=== PATIENT | male | born 1960 | race African-American/Black ===

== ENCOUNTER 2018-02-06 07:52 | Emergency (ER) | payer BC ==
--- NOTE | 2018-02-06 08:48 | RAD REPORT ---
EXAM DESCRIPTION: CT - CTHCSPWOC - 02/06/2018 8:34 am CLINICAL HISTORY: Trauma, head and neck injury. SMASH INJURY COMPARISON: C Spine Wo Con dated 05/12/2017; Head Brain Wo Cont dated 10/02/2016 TECHNIQUE: Axial 5 mm thick images of the head were obtained. Axial 2 mm thick images of the cervical spine were obtained with sagittal and coronal reconstruction images generated and reviewed. All CT scans are performed using dose optimization technique as appropriate and may include automated exposure control or mA/KV adjustment according to patient size. FINDINGS: CT HEAD WITHOUT CONTRAST: No acute hemorrhage, hydrocephalus or extra-axial collection is identified.No areas of brain edema or midline shift. The paranasal sinuses and mastoids are clear.The calvarium is intact. Moderate right frontal scalp he matoma. CT CERVICAL SPINE WITHOUT CONTRAST: No fracture or subluxation.Moderate multilevel cervical degenerative changes.No prevertebral soft tis sues swelling is identified. IMPRESSION: No acute intracranial or cervical spine findings. Moderate cervical spondylosis.
[2018-02-06] MEDS ORDERED: HYDROCODONE/APAP 5/325 MG TAB ONE (08:56)
[2018-02-06] MEDS ORDERED: CLINDAMYCIN HCL 150 MG CAP ONE (08:57)
--- NOTE | 2018-02-06 08:57 | EDPHYS ---
Physician Documentation [facility] Name: Lucie Brand Age: 58 yrs Sex: Male : 1960 Arrival Date: 02/06/2018 Time: 07:53 Bed 8 Private MD: Jose David Coronado C ED Physician Hany Hopkins HPI: 02/06 08:06 This 58 yrs old Black Male presents to ER via Wheelchair with complaints of Fall Injury snw - 6 Ft. 08:06 Details of fall: The patient fell from a height, from a ladder, but was slowed somewhat snw by hitting ladder rungs. Onset: The symptoms/episode began/occurred suddenly, just prior to arrival, helping a friend at her home. Associated injuries: The patient sustained injury to the head, right elbow and right bernard, abrasion. Severity of symptoms: At their worst the symptoms were moderate. The patient has not experienced similar symptoms in the past. It is unknown whether or not the patient has recently seen a physician, Sees Dr. Coronado. Ladder collapsed and pt fell about 6 ft and right forehead struck concrete. Denies LOC, vomiting, weakness. Historical: - Allergies: 08:05 Cipro; sv - PMHx: 08:05 Hypertension; Prostate Cancer; sv - Immunization history:: Adult Immunizations up to date. - Immunization history: Last tetanus immunization: - up to date. - Social history:: Smoking status: Patient/guardian denies using tobacco. - Ebola Screening: : No symptoms or risks identified at this time No symptoms or risks identified at this time. ROS: 08:05 Constitutional: Negative for fever, chills, and weight loss, Eyes: Negative for injury, snw pain, redness, and discharge, ENT: Negative for injury, pain, and discharge, Neck: Negative for injury, pain, and swelling, Cardiovascular: Negative for chest pain, palpitations, and edema, Respiratory: Negative for shortness of breath, cough, wheezing, and pleuritic chest pain, Abdomen/GI: Negative for abdominal pain, nausea, vomiting, diarrhea, and constipation, Back: Negative for injury and pain, : Negative for injury, bleeding, discharge, and swelling, MS/Extremity: Negative for injury and deformity, Skin: Negative for injury, rash, and discoloration. 08:05 Neuro: Positive for hematoma, Negative for dizziness, headache, hearing loss, loss of consciousness, seizure activity, weakness. Exam: 08:04 Eyes: Pupils equal round and reactive to light, extra-ocular motions intact. Lids and snw lashes normal. Conjunctiva and sclera are non-icteric and not injected. Cornea within normal limits. Periorbital areas with no swelling, redness, or edema. ENT: Nares patent. No nasal discharge, no septal abnormalities noted. Tympanic membranes are normal and external auditory canals are clear. Oropharynx with no redness, swelling, or masses, exudates, or evidence of obstruction, uvula midline. Mucous membranes moist. Neck: Trachea midline, no thyromegaly or masses palpated, and no cervical lymphadenopathy. Supple, full range of motion without nuchal rigidity, or vertebral point tenderness. No Meningismus. Chest/axilla: Normal chest wall appearance and motion. Nontender with no deformity. No lesions are appreciated. Cardiovascular: Regular rate and rhythm with a normal S1 and S2. No gallops, murmurs, or rubs. Normal PMI, no JVD. No pulse deficits. Respiratory: Lungs have equal breath sounds bilaterally, clear to auscultation and percussion. No rales, rhonchi or wheezes noted. No increased work of breathing, no retractions or nasal flaring. Abdomen/GI: Soft, non-tender, with normal bowel sounds. No distension or tympany. No guarding or rebound. No evidence of tenderness throughout. Back: No spinal tenderness. No costovertebral tenderness. Full range of motion. MS/ Extremity: Pulses equal, no cyanosis. Neurovascular intact. Full, normal range of motion. Neuro: Awake and alert, GCS 15, oriented to person, place, time, and situation. Cranial nerves II-XII grossly intact. Motor strength 5/5 in all extremities. Sensory grossly intact. Cerebellar exam normal. Normal gait. Psych: Awake, alert, with orientation to person, place and time. Behavior, mood, and affect are within normal limits. 08:04 Constitutional: The patient appears alert, awake. 08:04 Head/face: Noted is hematoma, that is severe, of the right side of forehead. 08:04 Skin: Appearance: normal except for affected area, injury, abrasion(s), small abrasion noted, of the right elbow and right bernard. Vital Signs: 08:03 BP 164 / 96; Pulse 65; Resp 16; Temp 98.8; Pulse Ox 97% on R/A; Weight 113.4 kg; Height hb 6 ft. 1 in. (185.42 cm); Pain 0/10; 08:55 BP 134 / 83; Pulse 66; Resp 18; Temp 98.8; Pulse Ox 99% ; Pain 0/10; sv 08:03 Body Mass Index 32.98 (113.40 kg, 185.42 cm) hb [place] Coma Score: 08:03 Eye Response: spontaneous(4). Verbal Response: oriented(5). Motor Response: obeys hb commands(6). Total: 15. 08:55 Eye Response: spontaneous(4). Verbal Response: oriented(5). Motor Response: obeys sv commands(6). Total: 15. Trauma Score (Adult): 08:03 Eye Response: spontaneous(1); Verbal Response: oriented(1); Motor Response: obeys hb commands(2); Systolic BP: > 89 mm Hg(4); Respiratory Rate: 10 to 29 per min(4); [place]a Score: 15; Trauma Score: 12 08:55 Eye Response: spontaneous(1); Verbal Response: oriented(1); Motor Response: obeys sv commands(2); Systolic BP: > 89 mm Hg(4); Respiratory Rate: 10 to 29 per min(4); Raina Score: 15; Trauma Score: 12 09:00 Eye Response: spontaneous(1); Verbal Response: oriented(1); Motor Response: obeys hb commands(2); Systolic BP: > 89 mm Hg(4); Respiratory Rate: 10 to 29 per min(4); [place] Score: 15; Trauma Score: 12 MDM: 07:57 Patient medically screened. rn 08:57 Data reviewed: vital signs, nurses notes. Data interpreted: Pulse oximetry: on room air snw is 97 %. Interpretation: normal. Counseling: I had a detailed discussion with the patient and/or guardian regarding: the historical points, exam findings, and any diagnostic results supporting the discharge/admit diagnosis, the presence of at least one elevated blood pressure reading (>120/80) during this emergency department visit, radiology results, the need for outpatient follow up, for definitive care, to return to the emergency department if symptoms worsen or persist or if there are any questions or concerns that arise at home. Special discussion: I have referred the patient to see his PCP for further evaluation of high blood pressure. Based on the patient's history, exam and DX evaluation, there is no indication for emergent intervention or inpatient [place]. It is understood by the patient/guardian that if the SXs persist or worsen they need to return immediately for re-evaluation. Based on the history and exam findings, there is no indication for further emergent testing or inpatient evaluation. I discussed with the patient/guardian the need to see the primary care provider for further evaluation of the symptoms. 02/06 08:04 Order name: CT Head C Spine; Complete Time: 08:58 snw 02/06 08:04 Order name: C-Collar; Complete Time: 08:11 snw Administered Medications: 08:55 Drug: [place] 5 mg-325 mg 1 tabs Route: PO; hb 09:35 Follow up: Response: No adverse reaction sv 08:55 Drug: Clindamycin 300 mg Route: PO; hb 09:35 Follow up: Response: No adverse reaction sv Disposition: 18:16 Co-signature as Attending Physician, Hany Hopkins MD. rn Disposition: 02/06/18 08:56 Discharged to Home. Impression: Unspecified injury of head, Essential (primary) hypertension. - Condition is Stable. - Discharge Instructions: Head Injury, Adult, Hypertension, Post-Concussion Syndrome, Managing Your High Blood Pressure. - Prescriptions for Tylenol- Codeine #3 300-30 mg Oral Tablet - take 2 tablets by ORAL route every 6 hours As needed; 20 tablet. Zofran 4 mg Oral Tablet - take 1 tablet by ORAL route every 8 hours As needed; 20 tablet. Clindamycin HCl 300 mg Oral Capsule - take 1 capsule by ORAL route every 8 hours for 10 days; 30 capsule. - Work release form, Medication Reconciliation Form, Thank You Letter, Antibiotic Education, Prescription Opioid Use form. - Follow up: Jose David Coronado MD; When: 2 - 3 days; Reason: Recheck today's complaints, Continuance of care, Re-evaluation by your physician. Follow up: Emergency Department; When: As needed; Reason: Worsening of condition. Signatures: [facility] Jinny Metzger RN RN Geeta Jensen, PUBLIC HEALTH CLINICAL NURSE SPECIALIST-C PUBLIC HEALTH CLINICAL NURSE SPECIALIST-CsnHany Jensen MD MD rn Baxter, Heather, RN RN Corrections: (The following items were deleted from the chart) 09:35 08:56 02/06/2018 08:56 Discharged to Home. Impression: Unspecified injury of head; sv Essential (primary) hypertension. Condition is Stable. Forms are Medication Reconciliation Form, Thank You Letter, Antibiotic Education, Prescription Opioid Use. Follow up: A Coronado; When: 2 - 3 days; Reason: Recheck today's complaints, Continuance of care, Re-evaluation by your physician. Follow up: Emergency Department; When: As needed; Reason: Worsening of condition. snw
--- NOTE | 2018-02-06 08:57 | ER ---
Nurse's Notes [facility] Name: Lucie Brand Age: 58 yrs Sex: Male : 1960 Arrival Date: 02/06/2018 Time: 07:53 Bed 8 Private MD: Jose David Coronado C Diagnosis: Unspecified injury of head;Essential (primary) hypertension Presentation: 02/06 08:02 Presenting complaint: Patient states: he was approx 6 ft up on a ladder and the ladder sv fell. Abrasion noted to right side of nose, above eyebrow, elbow, and right anterior lower leg. Hematoma noted to RLE and above right eyebrow. Transition of care: patient was not received from another setting of care. Onset of symptoms was February 06, 2018. Initial Sepsis Screen: Does the patient meet any 2 criteria? No. Patient's initial sepsis screen is negative. Does the patient have a suspected source of infection? No. Patient's initial sepsis screen is negative. Care prior to arrival: None. 08:02 Method Of Arrival: Wheelchair sv 08:02 Acuity: YAMILETH 3 sv 08:05 Risk Assessment: Do you want to hurt yourself or someone else? Patient reports no hb desire to harm self or others. 08:06 Mechanism of Injury: Fall approximately 6 feet. Trauma event details: Injury occurred: sv at home. Injury occurred: February 06, 2018. Trauma Activation: Not Applicable Physician: ED Physician; Name: ; Notified At: ; Arrived At: Physician: General Surgeon; Name: ; Notified At: ; Arrived At: Physician: Radiology; Name: ; Notified At: ; Arrived At: Physician: Respiratory; Name: ; Notified At: ; Arrived At: Physician: Lab; Name: ; Notified At: ; Arrived At: Historical: - Allergies: 08:05 Cipro; sv - PMHx: 08:05 Hypertension; Prostate Cancer; sv - Immunization history:: Adult Immunizations up to date. - Immunization history: Last tetanus immunization: - up to date. - Social history:: Smoking status: Patient/guardian denies using tobacco. - Ebola Screening: : No symptoms or risks identified at this time No symptoms or risks identified at this time. Screenin:03 Abuse screen: Denies threats or abuse. Denies injuries from another. Tuberculosis hb screening: No symptoms or risk factors identified. 08:08 Nutritional screening: No deficits noted. Fall Risk None identified. sv Primary Survey: 08:00 A: Airway: patent, No supplemental oxygen in use on arrival. hb 08:00 Breathing/Chest: Respiratory pattern: regular, Respiratory effort: spontaneous, hb unlabored, Breath sounds: clear, bilaterally. Chest inspection: symmetrical rise and fall of the chest. Circulation: Pulses: palpable . Skin color: pink, Skin temperature: warm, dry. Disability Alert. 09:00 Reassessment Airway Airway Patent Oxygen No O2 Breathing/Chest Respiratory pattern hb Regular Respiratory effort Spontaneous Unlabored Chest inspection Symmetrical Circulation Color [place] Temperature Warm Dry Disability Alert. Secondary Survey: 08:00 HEENT: Face Other contusion to right side of forehead. Gastrointestinal: No deficits hb noted. : No deficits noted. No signs and/or symptoms were reported regarding the genitourinary system. Musculoskeletal: No deficits noted. Injury Description: contusion to right forehead, abrasion to right side of nose, right elbow and right bernard. Assessment: 08:04 General: Appears in no apparent distress. Behavior is calm, cooperative. Pain: Denies hb pain. Neuro: Level of Consciousness is awake, alert, obeys commands, Oriented to person, place, time, situation, Pupils are PERRLA. EENT: No signs and/or symptoms were reported regarding the EENT system. Cardiovascular: Heart tones S1 S2 present Capillary refill < 3 seconds Patient's skin is warm and dry. Respiratory: Airway is patent Trachea midline Respiratory effort is even, unlabored, Respiratory pattern is regular, symmetrical, Breath sounds are clear bilaterally. GI: No signs and/or symptoms were reported involving the gastrointestinal system. : No signs and/or symptoms were reported regarding the genitourinary system. Derm: Skin is intact, is healthy with good turgor. Musculoskeletal: No signs and/or symptoms reported regarding the musculoskeletal system. Injury Description: contusion to right side of forehead, abrasions to right side of nose, right elbow and right bernard. 09:00 Reassessment: Patient appears in no apparent distress at this time. No changes from hb previously documented assessment. Patient and/or family updated on plan of care and expected duration. Pain level reassessed. Patient is alert, oriented x 3, equal unlabored respirations, skin warm/dry/pink. 09:20 Reassessment: Patient appears in no apparent distress at this time. No changes from sv previously documented assessment. Patient and/or family updated on plan of care and expected duration. Pain level reassessed. Patient is alert, oriented x 3, equal unlabored respirations, skin warm/dry/pink. Vital Signs: 08:03 BP 164 / 96; Pulse 65; Resp 16; Temp 98.8; Pulse Ox 97% on R/A; Weight 113.4 kg; Height hb 6 ft. 1 in. (185.42 cm); Pain 0/10; 08:55 BP 134 / 83; Pulse 66; Resp 18; Temp 98.8; Pulse Ox 99% ; Pain 0/10; sv 08:03 Body Mass Index 32.98 (113.40 kg, 185.42 cm) hb [place] Coma Score: 08:03 Eye Response: spontaneous(4). Verbal Response: oriented(5). Motor Response: obeys hb commands(6). Total: 15. 08:55 Eye Response: spontaneous(4). Verbal Response: oriented(5). Motor Response: obeys sv commands(6). Total: 15. Trauma Score (Adult): 08:03 Eye Response: spontaneous(1); Verbal Response: oriented(1); Motor Response: obeys hb commands(2); Systolic BP: > 89 mm Hg(4); Respiratory Rate: 10 to 29 per min(4); [place] Score: 15; Trauma Score: 12 08:55 Eye Response: spontaneous(1); Verbal Response: oriented(1); Motor Response: obeys sv commands(2); Systolic BP: > 89 mm Hg(4); Respiratory Rate: 10 to 29 per min(4); [place] Score: 15; Trauma Score: 12 09:00 Eye Response: spontaneous(1); Verbal Response: oriented(1); Motor Response: obeys hb commands(2); Systolic BP: > 89 mm Hg(4); Respiratory Rate: 10 to 29 per min(4); [place] Score: 15; Trauma Score: 12 ED Course: 07:53 Patient arrived in ED. as 07:54 Jose David Coronado MD is Private Physician. as 07:57 Hany Hopkins MD is Attending Physician. rn 08:02 Rigid cervical collar applied and checked by physician. sv 08:03 Geeta Villanueva FNP-C is [facility]. snw 08:05 Triage completed. sv 08:05 Arm band placed on right wrist. sv 08:06 Patient has correct armband on for positive identification. Bed in low position. Call sv light in reach. Door closed. Ice pack to injury. Head of bed elevated. 08:07 Patient maintains SpO2 saturation greater than 95% on room air. sv 08:10 Thermoregulation: warm blanket given to patient. hb 08:32 CT completed. Patient tolerated procedure well. Patient moved to CT via stretcher. Patient moved back from CT. 08:33 CT Head C Spine In Process Unspecified. EDMS 08:43 Jose David Coronado MD is Referral Physician. snw 08:48 Jacinta Eastman RN is Primary Nurse. hb 09:20 Wound care: to abrasion, located on right elbow, right bernard and right side of nose and sv right side of forehead was cleaned with with NS and gauze, dressed with Neosporin, Kerlix, cling, band aid, non-adherent gauze. 09:33 No provider procedures requiring assistance completed. Patient did not have IV access sv during this emergency room visit. Administered Medications: 08:55 Drug: [place] 5 mg-325 mg 1 tabs Route: PO; hb 09:35 Follow up: Response: No adverse reaction sv 08:55 Drug: Clindamycin 300 mg Route: PO; hb 09:35 Follow up: Response: No adverse reaction sv Intake: 09:00 PO: 100ml; Total: 100ml. hb Output: 09:00 Urine: 0ml; Total: 0ml. hb Outcome: 08:56 Discharge ordered by . snw 09:33 Discharged to home ambulatory. sv 09:33 Condition: stable 09:33 Discharge instructions given to patient, Instructed on discharge instructions, follow up and referral plans. no drinking with medication, no driving heavy equipment, medication usage, head injury precautions. Pt stated that his daughter who works for Dr Coronado would be checking up on him. Demonstrated understanding of instructions, follow-up care, medications, Prescriptions given X 3. 09:34 Patient's length of stay was not longer than 2 hours. sv 09:35 Patient left the ED. sv Signatures: Dispatcher [facility] Jinny Parker RN RN sv Geeta Villanueva, RISK COMPLIANCE MANAGER-C RISK COMPLIANCE MANAGER-Csnw Maxine Sanders Amelia as Nieto, Roman, MD MD rn Jacinta Eastman RN RN hb
== END 2018-02-06 09:35 | disposition home or self-care (01) ==
LOC: ER 07:52
DX: S09.90XA Unspecified injury of head, initial encounter (principal); I10 Essential (primary) hypertension; W11.XXXA Fall on and from ladder, initial encounter; Y93.9 Activity, unspecified; Y92.9 Unspecified place or not applicable; Z88.1 Allergy status to other antibiotic agents; Z85.46 Personal history of malignant neoplasm of prostate
CPT/HCPCS: 70450; 72125; 99285

== ENCOUNTER 2023-06-15 03:23 | Emergency (ER) | payer BC ==
--- OUTSIDE RECORDS SUMMARY | 2023-06-15 03:25 | XMS REPORT | Clinical Summary ---
:1960 Author Organization [facility] MD [facility] Address [address] [place] [address] Care Team Providers Name Role Phone Harry Kessler MD Primary Care Provider Allergies Active Allergy Reactions Criticality Noted Date Comments Ciprofloxacin Rash Low 11/19/2016 Medications Medication Sig Dispensed Refills Start Date End Date Status amLODIPine (NORVASC) 5 0 11/13/2016 Active mg tablet tadalafil (CIALIS) 10 Take 1 tablet (10 20 tablet 4 10/18/2021 Active mg tabletIndications: mg) by mouth Adenocarcinoma of daily as needed prostate for erectile dysfunction. Active Problems Problem Noted Date Diagnosed Date Adenocarcinoma of prostate 01/02/2017 Encounters Date Type Department Care Team Description 10/17/2022 Telemedicine MD [place] in Harry Dougherty, [place] arcinoma of 9:00 AM [facility] - Radiation prostate Oncology [address] [place] [address] after 06/15/2022 Medical History Medical History Date Comments Hypertension Asbestosis Prostate cancer 11/19/2016 Peyronie's disease Social History Tobacco Use Types Packs/Day Years Used Date Smoking Tobacco: Never Smokeless Tobacco: Never Alcohol Use Standard Drinks/Week Comments No 0 (1 standard drink = 0.6 oz pure alcoho l) Sex and Gender Information Value Date Recorded Sex Assigned at Not on file Gender Identity Not on file Sexual Orientation Not on file Job Start Date Occupation Industry Not on file Not on file Not on file Obstetrics History Last Filed Vital Signs Not on file Plan of Treatment Date Type Department Care Team Description 10/14/2023 11:00 Lab MD [facility] in [facility] Randee Kessler, AM TELETYPEWRITER OPERATOR [facility] [address] [place], [place] [address] [address] [place] [address] 10/16/2023 2:00 Telemedicine MD [facility] in Linda Gary, PA PM TELETYPEWRITER OPERATOR [facility] - Radiation [address] [place] [address] [address] [facility] [phone] (W ork) [address] [place] [address] Health Maintenance Due Date Last Done Comments COVID-19 Vaccination (#1) 1960 Results Not on fileafter 06/15/2022 Insurance Payer Benefit Plan Subscriber ID Effective Dates Phone Address Type / Group [employer] PPO POS [id number] 2016-Prese [phone] [address] [place] [address] [id number] [place] [address] Care Teams Information Technology Administrator Relationship Specialty Start Date End Date Harry Kessler MD PCP - General Radiation Oncology 09/17/[address] [place] [address]
--- OUTSIDE RECORDS SUMMARY | 2023-06-15 03:26 | XMS REPORT | Continuity of Care Document ---
:1960 Author Organization [facility] t Address [address] [place] [address] [place] [id number] Care Team Providers Name Role Phone [phone] Primary Care Physician Unavailable SYSTEM, PROVIDER NOT IN Attending Clinician Unavailable Clau Piper MD Attending Clinician CLAU PIPER Attending Clinician Unavailable Payers Payer Name Policy Type Policy Number Effective Date Expiration Date S ource Problems Condition Condition Condition Status Onset Resolution Last Treating Co mments Source Name Details Category Date Date Treatment Clinician Date Adenocarci Adenocarci Disease Active U nivers noma of noma of 5-25 ity of prostate prostate 00:00: [place] 00 MD [facility] Allergies, Adverse Reactions, Alerts Allergy Allergy Status Severity Reaction(s) Onset Inactive Treating Comm ents Source Name Type Date Date Clinician CIPROFLO DRUG Active Low Rash MD XACIN INGREDI 11-19 Anderso 00:00: n 00 CIPROFLO DRUG Active Low Rash MD XACIN INGREDI 11-19 Anderso 00:00: n 00 CIPROFLO DRUG Active Low Rash MD XACIN INGREDI 11-19 Anderso 00:00: n 00 CIPROFLO DRUG Active Low Rash MD XACIN INGREDI 11-19 Anderso 00:00: n 00 Ciproflo Propensi Active Rash Univer s xacin ty to 4-11 ity of adverse 00:00: [place] reaction 00 MD sridhar auguste [facility] Social History Social Habit Start Date Stop Date Quantity Comments Source Sexual orientation [facility] [place] MD Khoa sargent [facility] Alcohol intake 2016-12-27 2016-12-27 Current University of 00:00:00 00:00:00 non-drinker of [place] alcohol [facility] (finding) Tobacco use and 2016-11-19 2016-11-19 Smokeless Universit y of exposure 00:00:00 00:00:00 tobacco non-user [facility] Sex Assigned At [birth year] Universit y of 00:00:00 00:00:00 [place] MD Khoa sargent [facility] Smoking Status Start Date Stop Date Source Never smoked tobacco [facility] Medications Ordered Filled Start Stop Current Ordering Indication Dosage Frequency Signature Comments Components Source Medication Medication Date Date Medication? Clinician (SIG) Name Name tadalafil Yes Adenocarcin 10mg Take 1 Univers (CIALIS) 10 3-10 yaron of tablet (10 ity of mg tablet [place] daily as Anderso needed for n erectile Cancer dysfunctio Center n. amLODIPine Yes Univers (NORVASC) 5 4-05 ity of mg tablet 00:00: [place] 00 MD Nickie auguste [facility] Procedures This patient has no known procedures. Plan of Care Planned Activity Planned Date Details Comments Source Future Scheduled 2022-10-22 COVID-19 Vaccination Uni [facility] Test 07:57:13 (#1) [code = COVID-19 Cancer Vaccination (#1)] Center Encounters Start End Encounter Admission Attending Care Care Encounter Source Date/Time Date/Time Type Type Clinicians Facility Department ID 2022-10-16 Outpatient [facility], [facility] [id number] 14:17:51 PROVIDER Pepe auguste 2021-10-17 Outpatient SYSTEM, [facility] [id number] 12:17:42 PROVIDER Pepe auguste 2021-04-11 Outpatient SYSTEM, [facility] [id number] 10:51:16 PROVIDER Pepe auguste 2022-10-17 2022-10-17 [facility] [place], [id number] [facility] 09:00:00 09:04:07 enzo Mcdonald [id number] ity of [id number] [facility] 2022-10-17 2022-10-17 Outpatient MAYA PIPER MDA MDA [id number] 08:34:42 09:04:07 CLAU auguste 2021-10-18 2021-10-18 Outpatient MAYA PIPER MDA MDA [id number] 11:17:11 12:05:32 CLAU auguste 2021-04-12 2021-04-12 Outpatient MAYA PIPER MDA MDA [id number] 09:02:01 09:34:23 CLAU auguste Results This patient has no known results.
--- NOTE | 2023-06-15 03:50 | ER ---
Nurse's Notes [facility] Name: Lucie Brand Age: 63 yrs Sex: Male : 1960 Arrival Date: 06/15/2023 Time: 03:23 Bed IW1 Private MD: Diagnosis: Acute reaction to medication, acute tongue discoloration secondary to medication effect Presentation: 06/15 03:36 Chief complaint: Patient states: went to [facility] for dinner and about 30 after lg3 eating my body stared feeling funny. i stated having pressure in my belly, tightness in my chest and throat and black spots/streaks on my tongue. i took pepto and drank a sprite. denies N/V/D. Coronavirus screen: Client denies travel out of the [place] in the last 14 days. At this time, the client does not indicate any symptoms associated with coronavirus-19. Ebola Screen: No symptoms or risks identified at this time. Initial Sepsis Screen: Does the patient meet any 2 criteria? No. Patient's initial sepsis screen is negative. Does the patient have a suspected source of infection? No. Patient's initial sepsis screen is negative. Risk Assessment: Do you want to hurt yourself or someone else? Patient reports no desire to harm self or others. Onset of symptoms was June 14, 2023. 03:36 Method Of Arrival: Ambulatory lg3 03:36 Acuity: YAMILETH 4 lg3 Triage Assessment: 03:42 General: Appears in no apparent distress. comfortable, Behavior is calm, cooperative. lg3 Pain: Complains of pain in abdomen Pain currently is 3 out of 10 on a pain scale. EENT: black coloring to tongue . Neuro: No deficits noted. Blackman Agitation-Sedation Scale (RASS): 0 - Alert and Calm Level of Consciousness is awake, alert, obeys commands, Oriented to person, place, time, situation. Cardiovascular: No deficits noted. Denies chest pain, shortness of breath, Capillary refill < 3 seconds Clubbing of nail beds is absent JVD is absent Patient's skin is warm and dry. Respiratory: No deficits noted. Airway is patent Respiratory effort is even, unlabored, Respiratory pattern is regular, symmetrical. GI: No deficits noted. Abdomen is round non-distended, Abd is soft and non tender X 4 quads. : No deficits noted. No signs and/or symptoms were reported regarding the genitourinary system. Derm: No deficits noted. No signs and/or symptoms reported regarding the dermatologic system. Skin is intact, is healthy with good turgor, Skin is dry, Skin is normal, Skin temperature is warm. Musculoskeletal: No deficits noted. No signs and/or symptoms reported regarding the musculoskeletal system. Circulation, motion, and sensation intact. Range of motion: intact in all extremities. Historical: - Allergies: 03:42 Cipro; lg3 - PMHx: 03:42 Hypertension; Prostate Cancer; lg3 - Immunization history:: Adult Immunizations up to date. - Social history:: Smoking status: Patient denies any tobacco usage or history of. Patient/guardian denies using alcohol, street drugs. - Family history:: not pertinent. Screenin:55 [facility] ED Fall Risk Assessment (Adult) History of falling in the last 3 months, lg3 including since admission No falls in past 3 months (0 pts). Abuse screen: Denies threats or abuse. Denies injuries from another. Nutritional screening: No deficits noted. Tuberculosis screening: No symptoms or risk factors identified. Assessment: 03:55 General: see triage assessment. GI: No deficits noted. Bowel sounds present X 4 quads. lg3 Abd is soft and non tender X 4 quads. Vital Signs: 03:36 BP 122 / 85; Pulse 78; Resp 17 S; Temp 98.2(O); Pulse Ox 98% on R/A; Weight 113.4 kg lg3 (R); Height 6 ft. 1 in. (R); 03:36 Body Mass Index 32.98 (113.40 kg, 185.42 cm) lg3 ED Course: 03:25 Patient arrived in ED. jj6 03:29 Thom Fatima MD is Attending Physician. sp4 03:42 Triage completed. lg3 03:42 Arm band placed on right wrist. lg3 03:55 Patient has correct armband on for positive identification. lg3 03:55 No provider procedures requiring assistance completed. Patient did not have IV access lg3 during this emergency room visit. Administered Medications: No medications were administered Medication: 03:56 VIS not applicable for this client. lg3 Outcome: 03:50 Discharge ordered by . sp4 03:55 Discharged to home ambulatory, lg3 03:55 Condition: stable 03:55 Discharge instructions given to patient, Instructed on discharge instructions, follow up and referral plans. medication usage, Demonstrated understanding of instructions, follow-up care, medications, Prescriptions given X 1, 03:56 Patient left the ED. lg3 Signatures: Corinna Robles RN RN lg3 Margot Kim jj6 Thom Fatima MD MD sp4
--- NOTE | 2023-06-15 03:50 | EDPHYS ---
Physician Documentation [facility] Name: Lucie Brand Age: 63 yrs Sex: Male : 1960 Arrival Date: 06/15/2023 Time: 03:23 Bed IW1 Private MD: ED Physician Thom Fatima HPI: 06/15 03:29 This 63 yrs old Black Male presents to ER via Unassigned with complaints of Abdominal sp4 Pain, Nausea/Vomiting. 03:46 63-year-old male presents with acute tongue discoloration after taking Pepto-Bismol. sp4 Patient consumed Pepto-Bismol yesterday and today and developed blackish discoloration of the tongue. . Historical: - Allergies: 03:42 Cipro; lg3 - PMHx: 03:42 Hypertension; Prostate Cancer; lg3 - Immunization history:: Adult Immunizations up to date. - Social history:: Smoking status: Patient denies any tobacco usage or history of. Patient/guardian denies using alcohol, street drugs. - Family history:: not pertinent. ROS: 03:46 Constitutional: Negative for fever, chills, and weight loss, positive for blackness of sp4 the tongue 03:46 All other systems are negative, Exam: 03:46 Constitutional: This is a well developed, well nourished patient who is awake, alert, sp4 and in no acute distress. Head/Face: Normocephalic, atraumatic. Eyes: Pupils equal round and reactive to light, extra-ocular motions intact. Lids and lashes normal. Conjunctiva and sclera are not injected. Cornea within normal limits. Periorbital areas with no swelling, redness, or edema. ENT: Nares patent. No nasal discharge, no septal abnormalities noted. Tympanic membranes are normal and external auditory canals are clear. Oropharynx with no redness, swelling, or masses, exudates, or evidence of obstruction, uvula midline. Mucous membranes moist. Positive discoloration of the tongue upper surface secondary to Pepto-Bismol consumption. No signs of necrosis or any other problem. Neck: Trachea midline, no thyromegaly or masses palpated, and no cervical lymphadenopathy. Supple, full range of motion without nuchal rigidity, or vertebral point tenderness. Chest/axilla: Normal chest wall appearance and motion. Nontender with no deformity. No lesions are appreciated. Cardiovascular: Regular rate and rhythm with a normal S1 and S2. No gallops, murmurs, or rubs. Normal PMI, no JVD. No pulse deficits. Respiratory: Lungs have equal breath sounds bilaterally, clear to auscultation and percussion. No rales, rhonchi or wheezes noted. No increased work of breathing, no retractions or nasal flaring. Abdomen/GI: Soft, non-tender, with normal bowel sounds. No distension or tympany. No guarding or rebound. No evidence of tenderness throughout. Back: No spinal tenderness. No costovertebral tenderness. Skin: Warm, dry with normal turgor. Normal color with no rashes, no lesions, and no evidence of cellulitis. MS/ Extremity: Pulses equal, no cyanosis. Neurovascular intact. Full, normal range of motion. Neuro: Awake and alert, GCS 15, oriented to person, place, time, and situation. Cranial nerves II-XII grossly intact. Motor strength 5/5 in all extremities. Sensory grossly intact. Psych: Awake, alert, with orientation to person, place and time. Behavior, mood, and affect are within normal limits Vital Signs: 03:36 BP 122 / 85; Pulse 78; Resp 17 S; Temp 98.2(O); Pulse Ox 98% on R/A; Weight 113.4 kg lg3 (R); Height 6 ft. 1 in. (R); 03:36 Body Mass Index 32.98 (113.40 kg, 185.42 cm) lg3 MDM: 03:29 Patient medically screened. sp4 03:46 Differential diagnosis: gastritis, viral gastroenteritis, gastroenteritis. Data sp4 reviewed: vital signs, nurses notes. ED course: Patient also desires prescription of heartburn. Administered Medications: No medications were administered Disposition Summary: 06/15/23 03:50 Discharge Ordered Notes: Location: Home sp4 Problem: new sp4 Symptoms: are unchanged sp4 Condition: Stable sp4 Diagnosis - Acute reaction to medication, acute tongue discoloration secondary to medication sp4 effect Followup: sp4 - With: Private Physician - When: 7 - 10 days - Reason: Recheck today's complaints Discharge Instructions: - Discharge Summary Sheet sp4 - Gastroesophageal Reflux Disease, Adult, [id number] sp4 Forms: - Patient Portal Instructions sp4 Prescriptions: - omeprazole 20 mg Oral tablet, delayed release (enteric coated) - take 1 tablet ORAL route 2 times per day for 10 days; 60 tablet; Refills: 0, sp4 Product Selection Permitted Signatures: Dispatcher [employer] Corinna Quan RN RN lg3 Thom Fatima MD MD sp4 Corrections: (The following items were deleted from the chart) 03:48 03:29 IV Saline Lock ordered. sp4 lg3 03:48 03:29 Labs collected and sent ordered. sp4 lg3
[2023-06-15 04:55] VITALS: BP 122/85; TEMP 98.2; O2SAT 98
== END 2023-06-15 03:56 | disposition home or self-care (01) ==
LOC: ER 03:23
DX: K14.8 Other diseases of tongue (principal); T50.995A Adverse effect of other drugs, medicaments and biological substances, initial encounter; R11.2 Nausea with vomiting, unspecified; Z88.1 Allergy status to other antibiotic agents
CPT/HCPCS: 99283

== ENCOUNTER 2023-11-06 23:24 | Emergency (ER) | payer BC ==
--- OUTSIDE RECORDS SUMMARY | 2023-11-06 23:28 | XMS REPORT | Clinical Summary ---
Author Name Unknown Organization [facility] Address [address] [place] [address] Care Team Providers Care Assistant Associate Professor Name Role Phone Harry Kessler MD Primary Care Provider [phone] Allergies Active Allergy Reactions Criticality Noted Date Comments Ciprofloxacin Rash Low 11/19/2016 Medications Medication Sig Dispensed Refills Start Date End Date Status amLODIPine (NORVASC) 5 mg tablet 0 11/13/2016 Active tadalafil (CIALIS) 10 mg tabletIndications :Adenocarcinoma of prostate Take 1 tablet (10 mg) by mouth daily as needed for erectile dysfunction. 20 tablet 6 10/16/2023 Active tadalafil (CIALIS) 10 mg tabletIndications :Adenocarcinoma of prostate Take 1 tablet (10 mg) by mouth daily as needed for erectile dysfunction. 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 Telemedicine MD [facility] [place] - Radiation Oncology [address] [place], [place] [id number] Kaur Nam PA Crabtrey, Patricia, APRN Adenocarcinoma of prostate (Primary Dx) after 11/06/2022 Medical History Medical History Date Comments Hypertension Asbestosis Prostate cancer 11/19/2016 Peyronie's disease Social History Tobacco Use Types Packs/Day Years Used Date Smoking Tobacco: Never Smokeless Tobacco: Never Alcohol Use Standard Drinks/Week Comments No 0 (1 standard drink = 0.6 oz pur e alcohol) Sex and Gender Information Value Date Recorded Sex Assigned at Not on file Gender Identity Not on file Sexual Orientation Not on file Job Start Date Occupation Industry Not on file Not on file Not on file Obstetrics History Plan of Treatment Upcoming Encounters Date Type Department Care Team Description 10/21/2024 1:00 PM CDT Telemedicine MD [facility] in [place] - Radiation Oncology [address] [facility] [address] [place] [address] Kaylynn Dent, [employer] MANAGER [address] [place] [address] Health Maintenance Due Date Last Done Comments COVID-19 Vaccine (#1) 1960 Influenza Vaccine 04/11/2023 Care Teams Assistant Associate Professor Relationship Specialty Start Date End Date Harry Kessler MD [address] [place] [address] PCP - General Radiation Oncology 09/17/17
[2023-11-07 02:39] LABS: Absolute Eosinophils 0.6 K/uL (0-0.5); Absolute Lymphocytes (CBC) 1.3 K/uL (0.7-4.9); Absolute Monocytes 0.7 K/uL (0.1-1.3); Absolute Neutrophil 3.2 K/uL (1.8-8.0); Basophils % 0.4 % (0-1.3); Eosinophils % 10.5 % (0-4.4); Hematocrit 40.4 % (39.6-49.0); Hemoglobin 13.1 g/dL (13.6-17.9); Lymphocytes % 22.2 % (15.3-44.8); MCH 28.7 pg (27.0-35.0); MCHC 32.3 g/dL (32.0-36.0); MCV 88.8 fL (80-100); MPV 8.3 fL (7.6-11.3); Monocytes % 12.1 % (3.3-12.3); Neutrophils % 54.8 % (41.7-73.7); Platelets 176 thou/uL (152-406); RBC Red Blood Cell Count 4.55 M/uL (4.33-5.43); Red Cell Distribution Width 14.4 % (12.1-15.2)
[2023-11-07 02:47] LABS: PT Prothrombin Time 11.9 SECONDS (9.5-12.5); Protime INR 1.08
[2023-11-07 03:12] LABS: Albumin 3.6 g/dL (3.4-5.0); Albumin/Globulin Ratio 0.9 (1.1-1.8); Anion Gap 7.3 mEq/L (5.0-15.0); Bilirubin Direct 0.1 mg/dL (0-0.2); Bilirubin Indirect, Calculated 0.2 mg/dL (0.2-0.8); Bilirubin Total 0.3 mg/dL (0.2-1.0); Globulin 3.8 g/dL (2.3-3.5); Potassium 4.3 mEq/L (3.5-5.1); Protein, Total 7.4 g/dL (6.4-8.2); Troponin High Sensitivity 6.8 pg/mL (<58.9)
--- NOTE | 2023-11-07 05:09 | ER ---
Nurse's Notes [facility] Name: Lucie Brand Age: 63 yrs Sex: Male : 1960 Arrival Date: 11/06/2023 Time: 23:24 Bed 13 Private MD: Diagnosis: Paresthesia of skin;Acute anxiety Presentation: 11/05 23:32 Chief complaint: Patient states: WAS SLEEPING IN HIS CHAIR AND WAS AWAKEN BY HIS HEART jj7 BEATING FAST. HE FELT DIZZY AND LIKE HE WAS ABOUT TO PASS OUT. FELT NUMBNESS IN ALL HIS EXTREMITIES. Coronavirus screen: At this time, the client does not indicate any symptoms associated with coronavirus-19. Ebola Screen: No symptoms or risks identified at this time. Initial Sepsis Screen: Does the patient meet any 2 criteria? No. Patient's initial sepsis screen is negative. Does the patient have a suspected source of infection? No. Patient's initial sepsis screen is negative. Risk Assessment: Do you want to hurt yourself or someone else? Patient reports no desire to harm self or others. Onset of symptoms was November 06, 2023. 23:32 Method Of Arrival: Ambulatory [facility] 23:32 Acuity: YAMILETH 3 jj7 Triage Assessment: 23:37 General: Appears in no apparent distress. comfortable, Behavior is calm, cooperative, jj7 appropriate for age. Pain: Denies pain. Cardiovascular: No deficits noted. Historical: - Allergies: 23:37 Cipro; jj7 - PMHx: 23:37 Hypertension; Prostate Cancer; jj7 - PSHx: 23:37 RIGHT KNEE (Prostate Cancer); jj7 - Immunization history:: Client reports receiving the 2nd dose of the Covid vaccine, Flu vaccine is not up to date. - Social history:: Smoking status: Patient denies any tobacco usage or history of. Patient/guardian denies using alcohol, street drugs, IV drugs. - Family history:: not pertinent. Screenin:39 [facility] ED Fall Risk Assessment (Adult) History of falling in the last 3 months, jj7 including since admission No falls in past 3 months (0 pts) Confusion or Disorientation No (0 pts) Intoxicated or Sedated Yes (3 pts) Impaired Gait No (0 pts) Mobility Assist Device Used No (0 pt) Altered Elimination No (0 pt) Score/Fall Risk Level 0 - 2 = Low Risk Oriented to surroundings, Maintained a safe environment, Educated pt \T\ family on fall prevention, incl call for assistance when getting out of bed. Abuse screen: Denies threats or abuse. Nutritional screening: No deficits noted. Tuberculosis screening: No symptoms or risk factors identified. Assessment: 11/06 02:02 General: Appears in no apparent distress. comfortable, well groomed, well developed, pf1 Behavior is calm, cooperative, appropriate for age, quiet. 02:02 Pain: Denies pain. Neuro: No deficits noted. Level of Consciousness is awake, alert, pf1 obeys commands, Oriented to person, place, time, situation, Reports dizziness, numbness in patient C/O numbness to bilateral upper and lower extremities. since onset 2300 tonight. Cardiovascular: Reports palpitations, Capillary refill < 3 seconds Patient's skin is warm and dry. Respiratory: No deficits noted. Airway is patent Respiratory effort is even, unlabored, Respiratory pattern is regular, symmetrical. GI: No deficits noted. No signs and/or symptoms were reported involving the gastrointestinal system. : No deficits noted. No signs and/or symptoms were reported regarding the genitourinary system. EENT: No deficits noted. No signs and/or symptoms were reported regarding the EENT system. Derm: No deficits noted. No signs and/or symptoms reported regarding the dermatologic system. Musculoskeletal: Reports numbness in right hand, left hand, right arm, left arm, right leg and left leg since 2300 tonight. Patient stated symptoms have all resolved since arriving to ER and drank a bottle of water.. Vital Signs: 11/05 23:32 BP 147 / 86; Pulse 83; Resp 20; Temp 98.3; Pulse Ox 98% ; Weight 113.4 kg; Height 6 ft. jj7 1 in. ; Pain 0/10; 11/06 02:30 BP 137 / 98; Pulse 79; Resp 21; Pulse Ox 98% ; jj7 03:30 BP 127 / 80; Pulse 63; Resp 17; Pulse Ox 96% ; jj7 04:30 BP 134 / 83; Pulse 64; Resp 17; Pulse Ox 96% ; jj7 05:14 BP 129 / 80; Pulse 61; Resp 17; Pulse Ox 97% ; Pain 0/10; jj7 11/05 23:32 Body Mass Index 32.98 (113.40 kg, 185.42 cm) jj7 11/05 23:32 Pain Scale: Adult jj7 05:14 Pain Scale: Adult jj7 Crump Coma Score: 05:03 Eye Response: spontaneous(4). Motor Response: obeys commands(6). Verbal Response: sp4 oriented(5). Total: 15. NIH Stroke Scale Scores: 05:03 NIHSS Score: 0 sp4 ED Course: 11/05 23:27 Patient arrived in ED. jj6 23:37 Triage completed. jj7 23:37 Arm band placed on left wrist. jj7 23:58 Thom Fatima MD is Attending Physician. sp4 11/06 00:18 XRAY Chest (1 view) In Process Unspecified. EDMS 02:26 Inserted saline lock: 20 gauge in right antecubital area, using aseptic technique. rv1 Blood collected. 02:27 Basic Metabolic Panel Sent. rv1 02:27 CBC with Diff Sent. rv1 02:27 LFT's Sent. rv1 02:27 Magnesium Sent. rv1 02:27 NT PRO-BNP Sent. rv1 02:27 PT-INR Sent. rv1 02:27 Troponin HS Sent. rv1 02:30 Patient has correct armband on for positive identification. Bed in low position. Call jj7 light in reach. Side rails up X 1. Adult w/ patient. Provided Education on: USE OF CALL DURAN. Client placed on continuous cardiac and pulse oximetry monitoring. NIBP monitoring applied. quality assurance monitor on. 04:11 Wilton Yoder RN is Primary Nurse. jj7 05:08 Dominic Coronado MD is Referral Physician. sp4 05:14 No provider procedures requiring assistance completed. IV discontinued, intact, jj7 bleeding controlled, No redness/swelling at site. Pressure dressing applied. Patient maintains SpO2 saturation greater than 95% on room air. Administered Medications: 02:41 CANCELLED (Patient Refused): [id number] mg PO once pf1 Medication: 05:14 VIS not applicable for this client. jj7 Outcome: 05:08 Discharge ordered by . sp4 05:14 Discharged to home ambulatory, with family, jj7 05:14 Condition: improved 05:14 Discharge instructions given to patient, Instructed on discharge instructions, Demonstrated understanding of instructions, 05:14 Patient left the ED. jj7 NIH Stroke Scale - NIH Stroke Score Date: 11/07/2023 Time: 05:03 Total Score = 0 10. Dysarthria (speech clarity - read or repeat words) - 0(Normal) 11. Extinction and Inattention (visual/tactile/auditory/spatial/personal) - 0(No abnormality) 1a. Level of Consciousness (LOC) - 0(Alert) 1b. Level of Consciousness (LOC) (Month \T\ Age) - 0(Both) 1c. LOC Commands (Open \T\ Closes Eyes/T[employer] Aircraft) - 0(Both) 2. Best Gaze (Lateral Gaze Paresis) - 0(Normal) 3. Visual Field Loss - 0(No visual loss) 4. Facial Palsy - 0(Normal) 5a. Left Arm: Motor (10-second hold) - 0(No drift) 5b. Right Arm: Motor (10-second hold) - 0(No drift) 6a. Left Leg: Motor (5-second hold - always test supine) - 0(No drift) 6b. Right Leg: Motor (5-second hold - always test supine) - 0(No drift) 7. Limb Ataxia (finger/nose \T\ heel/bernard - test with eyes open) - 0(Absent) 8. Sensory Loss (pinprick arms/legs/face) - 0(Normal) 9. Best Language: Aphasia (description/naming/reading) - 0(No aphasia) Initials: sp4 Signatures: Dispatcher [employer] EDMS Margot Kim jj6 Wilton Yoder RN RN jj7 Marycruz Sears RN RN Trisha Douglass1 Thom Fatima MD MD sp4 Corrections: (The following items were deleted from the chart) 05:23 05:23 Patient left the ED. jj7 jj7
--- NOTE | 2023-11-07 05:09 | EDPHYS ---
Physician Documentation [facility] Name: Lucie Brand Age: 63 yrs Sex: Male : 1960 Arrival Date: 11/06/2023 Time: 23:24 Bed 13 Private MD: ED Physician Thom Fatima HPI: 11/05 23:58 This 63 yrs old Black Male presents to ER via Ambulatory with complaints of Dizziness, sp4 NUMBNESS TO EXT, Irregular Pulse. 11/06 05:03 63-year-old male presented because he woke up feeling signs of anxiety and also sp4 generalized numbness and tingling to extremities. . Historical: - Allergies: 11/05 23:37 Cipro; jj7 - PMHx: 23:37 Hypertension; Prostate Cancer; jj7 - PSHx: 23:37 RIGHT KNEE (Prostate Cancer); jj7 - Immunization history:: Client reports receiving the 2nd dose of the Covid vaccine, Flu vaccine is not up to date. - Social history:: Smoking status: Patient denies any tobacco usage or history of. Patient/guardian denies using alcohol, street drugs, IV drugs. - Family history:: not pertinent. ROS: 11/06 05:03 Constitutional: Negative for fever, chills, and weight loss, positive for generalized sp4 numbness and tingling to all extremities All other systems are negative, Exam: 05:03 Constitutional: This is a well developed, well nourished patient who is awake, alert, sp4 and in no acute distress. Head/Face: Normocephalic, atraumatic. Eyes: Pupils equal round and reactive to light, extra-ocular motions intact. Lids and lashes normal. Conjunctiva and sclera are not injected. Cornea within normal limits. Periorbital areas with no swelling, redness, or edema. ENT: Nares patent. No nasal discharge, no septal abnormalities noted. Tympanic membranes are normal and external auditory canals are clear. Oropharynx with no redness, swelling, or masses, exudates, or evidence of obstruction, uvula midline. Mucous membranes moist. Neck: Trachea midline, no thyromegaly or masses palpated, and no cervical lymphadenopathy. Supple, full range of motion without nuchal rigidity, or vertebral point tenderness. Chest/axilla: Normal chest wall appearance and motion. Nontender with no deformity. No lesions are appreciated. Cardiovascular: Regular rate and rhythm with a normal S1 and S2. No gallops, murmurs, or rubs. Normal PMI, no JVD. No pulse deficits. Respiratory: Lungs have equal breath sounds bilaterally, clear to auscultation and percussion. No rales, rhonchi or wheezes noted. No increased work of breathing, no retractions or nasal flaring. Abdomen/GI: Soft, with normal bowel sounds. No distension or tympany. No guarding or rebound. No evidence of tenderness throughout. Back: No spinal tenderness. No costovertebral tenderness. Skin: Warm, dry with normal turgor. Normal color with no rashes, no lesions, and no evidence of cellulitis. MS/ Extremity: Pulses equal, no cyanosis. Neurovascular intact. Full, normal range of motion. Neuro: Awake and alert, GCS 15, oriented to person, place, time, and situation. Cranial nerves II-XII grossly intact. Motor strength 5/5 in all extremities. Sensory grossly intact. Psych: Awake, alert, with orientation to person, place and time. Behavior, mood, and affect are within normal limits 05:03 ECG was reviewed by the Attending Physician. EKG time 0 228 normal sinus rhythm normal EKG Vital Signs: 11/05 23:32 BP 147 / 86; Pulse 83; Resp 20; Temp 98.3; Pulse Ox 98% ; Weight 113.4 kg; Height 6 ft. j 1 in. ; Pain 0/10; 11/06 02:30 BP 137 / 98; Pulse 79; Resp 21; Pulse Ox 98% ; j7 03:30 BP 127 / 80; Pulse 63; Resp 17; Pulse Ox 96% ; j7 04:30 BP 134 / 83; Pulse 64; Resp 17; Pulse Ox 96% ; j7 05:14 BP 129 / 80; Pulse 61; Resp 17; Pulse Ox 97% ; Pain 0/10; 7 11/05 23:32 Body Mass Index 32.98 (113.40 kg, 185.42 cm) [facility] 11/05 23:32 Pain Scale: Adult j 05:14 Pain Scale: Adult [facility] NIH Stroke Scale Scores: 05:03 NIHSS Score: 0 sp4 Raina Coma Score: 05:03 Eye Response: spontaneous(4). Motor Response: obeys commands(6). Verbal Response: sp4 oriented(5). Total: 15. MDM: 11/05 23:59 Patient medically screened. 11/06 04:56 ED course: EXAM DESCRIPTION: Chest Single View CLINICAL HISTORY: 63 years Male dizzy sp4 TECHNIQUE: One view of the chest. COMPARISON: No prior exams provided for comparison. FINDINGS: The lungs are clear without focal consolidation, effusion, or pneumothorax. The cardiomediastinal silhouette and central pulmonary vasculature are normal. No acute osseous abnormalities. IMPRESSION: No acute cardiopulmonary abnormalities.. 05:03 Differential diagnosis: cardiac arrhythmia, generalized weakness, hypovolemia, sp4 idiopathic dizziness, near-syncope. Data reviewed: vital signs, nurses notes, lab test result(s), electrolytes, hepatic panel, EKG, radiologic studies, plain films. ED course: Patient has normal exam and normal work up. Patient has normal health profile today. Stable for discharge. 11/05 23:58 Order name: Basic Metabolic Panel; Complete Time: 04:54 4 11/05 23:58 Order name: CBC with Diff; Complete Time: 02:51 4 11/05 23:58 Order name: LFT's; Complete Time: 04:54 4 11/05 23:58 Order name: Magnesium; Complete Time: 04:54 4 11/05 23:58 Order name: NT PRO-BNP; Complete Time: 04:54 4 11/05 23:58 Order name: PT-INR; Complete Time: 02:51 4 11/05 23:58 Order name: Troponin HS; Complete Time: 04:54 4 11/05 23:58 Order name: XRAY Chest (1 view) 4 11/05 23:58 Order name: Cardiac monitoring; Complete Time: 02:26 4 11/05 23:58 Order name: EKG - Nurse/Tech; Complete Time: 02:41 4 11/05 23:58 Order name: IV Saline Lock; Complete Time: 02:26 4 11/05 23:58 Order name: Labs collected and sent; Complete Time: 02:26 4 11/05 23:58 Order name: O2 Per Protocol; Complete Time: 02:26 [facility] 11/05 23:58 Order name: O2 Sat Monitoring; Complete Time: 02:26 sp4 EC:03 Rate is 73 beats/min. Rhythm is regular, Normal Sinus Rhythm. QRS [place] is Normal. CO sp4 interval is normal. QRS interval is normal. QT interval is normal. No Q waves. T waves are Normal. No ST changes noted. Clinical impression: Normal ECG. Interpreted by me. Reviewed by me. Administered Medications: 02:41 CANCELLED (Patient Refused): [id number] mg PO once pf1 Disposition Summary: 11/07/23 05:08 Discharge Ordered Notes: Location: Home sp4 Problem: new sp4 Symptoms: have improved sp4 Condition: Stable sp4 Diagnosis - Paresthesia of skin sp4 - Acute anxiety sp4 Followup: sp4 - With: Dominic Coronado MD - When: 7 - 10 days - Reason: Recheck today's complaints Discharge Instructions: - Discharge Summary Sheet sp4 - Panic Attack, [id number] sp4 Forms: - Patient Portal Instructions sp4 NIH Stroke Scale - NIH Stroke Score Date: 11/07/2023 Time: 05:03 Total Score = 0 10. Dysarthria (speech clarity - read or repeat words) - 0(Normal) 11. Extinction and Inattention (visual/tactile/auditory/spatial/personal) - 0(No abnormality) 1a. Level of Consciousness (LOC) - 0(Alert) 1b. Level of Consciousness (LOC) (Month \T\ Age) - 0(Both) 1c. LOC Commands (Open \T\ Closes Eyes/Client Finance Analyst) - 0(Both) 2. Best Gaze (Lateral Gaze Paresis) - 0(Normal) 3. Visual Field Loss - 0(No visual loss) 4. Facial Palsy - 0(Normal) 5a. Left Arm: Motor (10-second hold) - 0(No drift) 5b. Right Arm: Motor (10-second hold) - 0(No drift) 6a. Left Leg: Motor (5-second hold - always test supine) - 0(No drift) 6b. Right Leg: Motor (5-second hold - always test supine) - 0(No drift) 7. Limb Ataxia (finger/nose \T\ heel/bernard - test with eyes open) - 0(Absent) 8. Sensory Loss (pinprick arms/legs/face) - 0(Normal) 9. Best Language: Aphasia (description/naming/reading) - 0(No aphasia) Initials: sp4 Signatures: Dispatcher [employer] Wilton Obrien RN RN jj7 Thom Fatima MD MD sp4 Marycruz Sears RN pf1 Corrections: (The following items were deleted from the chart) 02:41 11/05 23:59 Diazepam PO 10 mg PO once ordered. sp4 pf1
[2023-11-07 05:36] VITALS: BP 129/80; TEMP 98.3; O2SAT 97
--- NOTE | 2023-11-07 11:49 | EKG ---
Test Date: 2023-11-07 Test Time: 02:28:03 General Partner: RAMIRO MEASUREMENT RESULTS: Intervals: Rate: 73 IA: 206 QRSD: 86 QT: 376 QTc: 414 [place]: P: 66 IA: 206 QRS: 52 T: 42 INTERPRETIVE STATEMENTS: Normal sinus rhythm Normal ECG Compared to ECG 10/02/2016 05:26:16 No significant changes Electronically Signed On 11-07-23 11:48:28 CDT by Gavin Pabon
--- NOTE | 2023-11-07 16:22 | RAD REPORT ---
EXAM DESCRIPTION: Chest Single View CLINICAL HISTORY: 63 years Male dizzy TECHNIQUE: One view of the chest. COMPARISON: No prior exams provided for comparison. FINDINGS: The lungs are clear without focal consolidation, effusion, or pneumothorax. The cardiomedi astinal silhouette and central pulmonary vasculature are normal. No acute osseous abnormalities. IMPRESSION: No acute cardiopulmonary abnormalities. Electronically signed by: Colette Reyes MD 11/07/2023 12:36 AM CDT Due to temporary technical issues with the PACS/Fluency reporting system, reports are being signed by the in house radiologists without review as a courtesy to insure prompt reporting. The interpreting radiologist is fully responsible for the content of the report.
== END 2023-11-07 05:23 | disposition home or self-care (01) ==
LOC: ER 23:24
DX: F41.9 Anxiety disorder, unspecified (principal); I10 Essential (primary) hypertension; Z88.1 Allergy status to other antibiotic agents
CPT/HCPCS: 36415; 71045; 80048; 80076; 83735; 83880; 84484; 85025; 85610; 93005; 99285